=== PATIENT | male | born 1950 ===

== ENCOUNTER 2016-12-25 06:27 | Day surgery (SDC) | payer MEDICARE ==
[2016-12-25 06:49] VITALS: BMI 29.0
[2016-12-25] MEDS ORDERED: Propofol 10 mg/ml Inj (20 ML) ONE ×2 (07:40→08:18)
[2016-12-25] MEDS ORDERED: Lidocaine Hydrochloride 5 ML INJ ONE (07:40)
[2016-12-25] MEDS ORDERED: Lactated Ringer's 500 ML IV SCH (07:45)
--- NOTE | 2016-12-25 08:03 | CP.SDSHP ---
Same Day Surgery H & P - History Proposed Procedure: egd. screening colonoscopy Pre-Op Diagnosis: heartburn. epigastric pain. screening for colon cancer - Previous Medical/Surgical History Misc: Other (gastritis) - Allergies Allergies: Allergies No Known Allergies Allergy (Verified 12/25/16 06:47) - Physical Exam Vital Signs: Vital Signs 12/25/16 06:52 Temperature 97.2 F L Pulse Rate 71 Respiratory 19 Rate Blood Pressure 153/90 H O2 Sat by Pulse 98 Oximetry Mental Status: Alert & Oriented x3 Neuro: WNL Heart: WNL Lungs: WNL GI: WNL - Impression Impression: epigastric pain. heartburn. screening for colon cancer Pt. Evaluated Today:Candidate for Anesthesia & Procedure: Yes - Date & Time Date: 12/25/16 Time: 08:02 Short Stay Discharge - Short Stay Discharge Admitting Diagnosis/Reason for Visit: EPIGASTRIC PAIN,HEARTBURN,ENCOUNTER FOR SCREENING Disposition: HOME/ ROUTINE
[2016-12-25] MEDS ORDERED: Phenylephrine 10 mg/ml Inj ONE (08:24)
[2016-12-25 08:47] VITALS: O2SAT 100
[2016-12-25 09:08] VITALS: TEMP 97.5
[2016-12-25 09:10] VITALS: RESP 17
[2016-12-25 09:36] VITALS: BP 141/67; PULSE 81
== END 2016-12-25 09:33 | disposition home or self-care (01) ==
LOC: C.ENDO 06:27
PROVIDERS: ATTEND Internal Medicine Gastroenterology
DX: K21.9 Gastro-esophageal reflux disease without esophagitis (principal); K29.70 Gastritis, unspecified, without bleeding; K44.9 Diaphragmatic hernia without obstruction or gangrene; K64.8 Other hemorrhoids; K63.5 Polyp of colon
CPT/HCPCS: 43239; 45388; 88305; J2370; J2704; J7120